=== PATIENT | female | born 1995 | race Caucasian/White ===

== ENCOUNTER 2016-12-10 09:34 | Emergency (ER) | payer OTHER ==
--- NOTE | ~2016-12-10 | CT71 ---
[facility] A Service [facility] RADIOLOGY TEXT RESULTS PATIENT: DAVID ZABALA LOCATION: SED : [birth year] UNIT #: [id number] AGE: [address]: Mick Lala MD SEX: F ORDER DR: [id number] [address] [address] [id number] E MR#: [id number] Acc #: [id number] NAME: DAVID ZABALA. : 1995 SEX: F STUDY DATE/TIME: 12/10/2016 11:08 UNIT: SED ROOM: STUDY DESCRIPTION: CT Head Wo Contrast Attending Physician: Mick Lala M.D. Ordering Physician: Mick Lala M.D. Primary Care Physician: Primary Care Physician No MEDICAL IMAGING REPORT This report is preliminary unless electronic signature is present. EXAM Head CT without HISTORY Migraine for one month with visual disturbance and nausea and right-sided pain. TECHNIQUE This CT exam was performed with one or more of the following radiation dose reduction techniques: automatic exposure control, adjustment of mA and/or kV according to patient size, and iterative reconstruction. COMPARISON None FINDINGS Routine noncontrast head CT is reviewed. There is no displaced calvarial fracture. The mastoid air cells are clear. There is partial opacification of the ethmoid air cells on the left and minor mucosal thickening in the left maxillary sinus where visualized. No air fluid level in the visualized paranasal sinuses. There is no evidence for acute intracranial hemorrhage or extraaxial fluid collection. The ventricles are normal in size and configuration and the childs-white junction is well maintained. No acute cortical infarct is suspected. No intracranial mass effect. Basilar cisterns are patent. IMPRESSION Negative noncontrast head CT. [facility] A Service [facility] RADIOLOGY TEXT RESULTS PATIENT: DAVID ZABALA LOCATION: SED : 96 UNIT #: [id number] AGE: [address]: Mick Lala MD SEX: F ORDER DR: Dictated by... Ashley Garcia M.D. THIS IS AN ELECTRONICALLY VERIFIED REPORT Ashley Garcia M.D. at 12/10/2016 3:21 PM [place] TD: 12/10/2016 14:03 JOB #: [id number] MEDICAL IMAGING REPORT Page 1 of 1
[~2016-12-10 09:34] MED LIST: ALBUTEROL17 GM INH; BENZONATATE PO; CELEXA PO; CLEOCIN HCL300 M1 PO; CLINDAMYCIN HC300 MG PO; DOXYCYCLINE MO PO; FLEXERIL10 MG PO; LEVAQUIN PO; LITHIUM CARBON600 MG PO; MOTRIN PO; NAPROSYN-EC500 M1 PO; NO MEDICATIONS; PROMETHAZINE D118 ML PO; TRAZODONE HCL100 MG PO; TRAZODONE PO; TYLENOL #3 PO; WELLBUTRIN SR150 MG PO; ZITHROMAX500 MG PO; ZOFRAN ODT4 MG PO; ZOFRAN ODT4 MG SL; ZOLOFT50 MG PO
== END 2016-12-10 12:35 | disposition home or self-care (01) ==
LOC: SED 09:34
DX: G44.209 Tension-type headache, unspecified, not intractable (principal); J45.909 Unspecified asthma, uncomplicated; F41.9 Anxiety disorder, unspecified; F17.210 Nicotine dependence, cigarettes, uncomplicated; Z88.0 Allergy status to penicillin
CPT/HCPCS: 70450; 96372; 99284; J0780; J1200